=== PATIENT | male | born 1955 | race Hispanic/Latino ===

== ENCOUNTER → 2021-03-15 | Outpatient (CLI) | payer OTHER ==
[~2021-03-15] MED LIST: ALBUMIN (HUMAN) 25% 200 ML IV SCH
[2021-03-15 11:02] LABS: EOSINOPHILS % (AUTO) 3.9 % (0.0-8.0); HEMATOCRIT 38.7 % (42-54); MEAN CORPUSCULAR HEMOGLOBIN 33.8 pg (27.0-33.0); MEAN CORPUSCULAR HGB CONC 33.6 g/dL (32.0-36.0); MEAN CORPUSCULAR VOLUME 100.5 fL (79-99); MONOCYTES % (AUTO) 15.7 % (3.0-13.0); NEUTROPHILS % (AUTO) 59.2 % (40.0-77.0); PLATELET COUNT (AUTO) 90 K/uL (130-400); RED BLOOD CELL COUNT(AUTO) 3.85 MIL/uL (4.50-6.20); RED CELL DISTRIBUTION WIDTH 15.8 % (11.0-15.5); WHITE BLOOD COUNT (AUTO) 5.1 K/uL (4.8-10.8)
[2021-03-15 11:09] LABS: INR 1.54 (0.85-1.15); PROTHROMBIN TIME 16.1 SEC (9.6-11.6)
[2021-03-15 11:10] LABS: ALBUMIN 2.3 g/dL (3.5-5.0); BILIRUBIN,TOTAL 3.4 mg/dL (0.2-1.0); CREATININE 0.8 mg/dL (0.5-1.5); POTASSIUM 4.7 mmol/L (3.5-5.1); TOTAL PROTEIN, SERUM 7.6 g/dL (6.0-8.3)
[2021-03-15 13:42] LABS: APPEARANCE BODY FLUID CLEAR (CLEAR); COLOR,BODY FLUID YELLOW (LT YELLOW); SPECIMENTYPE,BODY FLUID ASCITES; TOTAL VOLUME,BODY FLUID 5700 mL
[2021-03-15 13:43] LABS: ALBUMIN,BODY FLUID < 0.6 g/dL; BODY FLUID RBC 240 /cu. mm.; BODY FLUID WBC 300 /cu. mm.
[2021-03-15 13:58] LABS: BF LYMPHOCYTE 50 %; BF MESOTHELIAL 45 %
== END | disposition home or self-care (01) ==
LOC: RAH 10:00
PROVIDERS: ATTEND Internal Medicine Gastroenterology
DX: R18.8 Other ascites (principal); K74.60 Unspecified cirrhosis of liver; D69.8 Other specified hemorrhagic conditions; Z98.890 Other specified postprocedural states; Z79.899 Other long term (current) drug therapy
CPT/HCPCS: 36415; 49083; 80053; 82042; 84157; 85025; 85610; 87071; 87205; 89051; C1729; P9046

== ENCOUNTER 2022-03-15 05:50 | Inpatient (IN) | payer OTHER ==
[~2022-03-15] VITALS: Ht 177.8 cm; Wt 90.6 kg
[2022-03-15] VITALS (65 sets, daily range): BP systolic 89–137; BP diastolic 47–87
[2022-03-15 06:30] LABS: BASOPHILS % (AUTO) 0.4 % (0.0-5.0); EOSINOPHILS % (AUTO) 0.8 % (0.0-8.0); HEMATOCRIT 25.2 % (42-54); MEAN CORPUSCULAR HEMOGLOBIN 33.7 pg (27.0-33.0); MEAN CORPUSCULAR HGB CONC 34.9 g/dL (32.0-36.0); MEAN CORPUSCULAR VOLUME 96.6 fL (79-99); MONOCYTES % (AUTO) 15.6 % (3.0-13.0); NEUTROPHILS % (AUTO) 70.9 % (40.0-77.0); PLATELET COUNT (AUTO) 81 K/uL (130-400); RED BLOOD CELL COUNT(AUTO) 2.61 MIL/uL (4.50-6.20); RED CELL DISTRIBUTION WIDTH 15.6 % (11.0-15.5); WHITE BLOOD COUNT (AUTO) 12.4 K/uL (4.8-10.8)
[2022-03-15] MEDS ORDERED: PANTOPRAZOLE 40 MG/VIAL IVP ONE (06:30)
[2022-03-15] MEDS ORDERED: ONDANSETRON 4MG INJ IVP ONE (06:30)
[2022-03-15] MEDS ORDERED: CEFTRIAXONE 1G VIAL 1 GM in 0.9%NACL 50ML 50 ML IV ONE (06:30)
[2022-03-15] MEDS ORDERED: LACTATED RINGERS 1000ML 1,000 ML IV ONE (06:30)
[2022-03-15] MEDS ORDERED: OCTREOTIDE ACETATE 100 MCG/ML AMP IVP ONE (06:30)
[2022-03-15] MEDS ORDERED: OCTREOTIDE ACETATE 1,000 MCG in DEXTROSE 5%-WATER 195 ML IV SCH (06:30)
[2022-03-15 06:49] LABS: ALBUMIN 1.4 g/dL (3.5-5.0); CREATININE 0.8 mg/dL (0.5-1.5)
[2022-03-15] MEDS: CEFTRIAXONE 1G VIAL IVP SCH (06:49)
[2022-03-15 06:50] LABS: INR 2.3 (0.85-1.15); PROTHROMBIN TIME 23.9 SEC (9.6-11.6)
[2022-03-15 06:51] LABS: PARTIAL THROMBOPLASTIN TIME 46.2 SEC (26.3-35.5)
[2022-03-15] MEDS ORDERED: OCTREOTIDE ACETATE 200 MCG/ML 5 ML VIAL ONE (06:52)
[2022-03-15 06:55] LABS: TOTAL PROTEIN, SERUM 5.7 g/dL (6.0-8.3)
[2022-03-15] MEDS ORDERED: PHYTONADIONE 10 MG/1 ML AMP SQ SCH (07:00)
[2022-03-15] MEDS ORDERED: OCTREOTIDE 1,250 MCG /NS 250ML (DRIP) IV SCH ×2 (07:30)
[2022-03-15] MEDS ORDERED: OCTREOTIDE ACETATE 1,250 MCG in 0.9% NACL 250ML 250 ML IV SCH ×2 (07:30→08:00)
[2022-03-15 07:49] LABS: POTASSIUM 6.4 mmol/L (3.5-5.1)
[2022-03-15] MEDS ORDERED: NA ZIRCON CYCLOSIL(LOKELMA 10GM) PO ONE (07:52)
[2022-03-15] MEDS ORDERED: SODIUM ZIRCONIUM CYCLOSILICATE 5 GM POWD.PACK PO STA (07:59)
[2022-03-15] MEDS ORDERED: NOREPINEPHRIN 4MG/NS 250ML 250 ML IV SCH (08:00)
[2022-03-15] MEDS: 0.9%NACL 1000ML 1,000 ML IV SCH ×2 (08:18→18:00)
[2022-03-15 08:40] LABS: HEMATOCRIT 22.3 % (42-54)
[2022-03-15] MEDS: PANTOPRAZOLE 40MG INJ 80 MG in 0.9%NACL 100ML 100 ML IVP SCH ×2 (08:59→18:13)
[2022-03-15] MEDS ORDERED: ONDANSETRON 4MG INJ IVP PRN (09:00)
[2022-03-15] MEDS ORDERED: CHLORDIAZEPOXIDE HCL 25 MG CAP PO PRN (09:00)
[2022-03-15] MEDS ORDERED: GLUCAGON 1MG KIT 1 MG ML IM PRN (09:00)
[2022-03-15] MEDS ORDERED: CALCIUM GLUC 1GM/10ML VIAL IVPB SCH (09:00)
[2022-03-15] MEDS ORDERED: SODIUM BICARB 8.4% 50ML SYRINGE IVP SCH (09:00)
[2022-03-15] MEDS ORDERED: ACETAMINOPHEN 325 MG TAB PO PRN (09:00)
[2022-03-15] MEDS ORDERED: DEXTROSE 50%-WATER 50 ML DISP.SYRIN IV PRN (09:00)
[2022-03-15] MEDS ORDERED: ACETAMINOPHEN 650 MG SUPPOSITORY RC PRN (09:00)
[2022-03-15] MEDS ORDERED: INSULIN HUMULIN R 100 UNIT/ML 3ML IV ONE (09:00)
[2022-03-15] MEDS ORDERED: LORAZEPAM 2 MG/ML 1 ML VIAL IM PRN (09:00)
[2022-03-15] MEDS ORDERED: KAYEXALATE 15GM/60ML RC ONE (09:00)
[2022-03-15] MEDS ORDERED: 0.9%NACL 50ML IV SCH (09:00)
[2022-03-15] MEDS ORDERED: DEXTROSE 50%-WATER 50 ML DISP.SYRIN IV ONE (09:00)
[2022-03-15] MEDS ORDERED: SODIUM BICARB 50MEQ 50ML VIAL 50 ML ONE (09:20)
[2022-03-15] MEDS ORDERED: CALCIUM GLUC 1GM/10ML VIAL ONE ×3 (09:25→22:45)
[2022-03-15] MEDS: METOCLOPRAMIDE 10 MG/2 ML VIAL IVP SCH ×3 (09:38→20:49)
[2022-03-15] MEDS: CALCIUM GLUC 1GM 1 GM in 0.9%NACL 100ML 100 ML IV SCH ×3 (09:39→23:58)
[2022-03-15] MEDS: LACTULOSE 20 GM/30 ML UDCUP PO SCH ×2 (09:53→15:14)
[2022-03-15] MEDS ORDERED: FURO40TA5 PO (10:11)
[2022-03-15] MEDS ORDERED: SPIR100T5 PO (10:11)
[2022-03-15] MEDS ORDERED: VITA-382 PO (10:11)
[2022-03-15] MEDS ORDERED: ROCURONIUM BROMIDE 10MG/1ML 5ML VL IV ONE (10:50)
[2022-03-15 11:55] LABS: CREATININE 0.9 mg/dL (0.5-1.5)
[2022-03-15 12:21] LABS: POTASSIUM 7.1 mmol/L (3.5-5.1)
[2022-03-15] MEDS ORDERED: COMPOUND IV REFRIGERATED 1 EACH IVSOLN MISC PRN (13:30)
[2022-03-15] MEDS ORDERED: FUROSEMIDE 40MG VIAL IV SCH (13:30)
[2022-03-15] MEDS ORDERED: PROPOFOL 10 MG/ML 20ML VIAL IV SCH (15:46)
[2022-03-15] MEDS ORDERED: ETOMIDATE 20MG VIAL IVP SCH (15:46)
[2022-03-15] MEDS ORDERED: PROPOFOL 1000 MG/100 ML 100 ML IV ONE (15:55)
[2022-03-15] MEDS ORDERED: FENTANYL CITRATE PF 0.05 MG/ML 2,500 MCG in 0.9% NACL 250ML 200 ML IV PRN (16:30)
[2022-03-15] MEDS ORDERED: PHARMACY COMMUNICATION MISC SCH ×2 (16:30→17:30)
[2022-03-15] MEDS ORDERED: NOREPINEPHRIN 4MG/NS 250ML 250 ML IV PRN (16:30)
[2022-03-15] MEDS ORDERED: MIDAZOLAM 100MG-0.9% NS 100ML 50 ML IV PRN (16:30)
[2022-03-15] MEDS ORDERED: MIDAZOLAM 100MG-0.9% NS 100ML 100 ML IV ONE (16:32)
[2022-03-15 16:49] LABS: ABG BASE EXCESS 0.8 mmol/L (-2.0-3.0); ABG HCO3 24.1 mmol/L (21.0-28.0); ABG OXYGEN SATURATION 97.7 % (95.0-99.0); ABG PCO2 33 mmHg (35-48)
[2022-03-15] MEDS ORDERED: LACTULOSE 20 GM/30 ML UDCUP PR PRN (17:20)
[2022-03-15] MEDS ORDERED: FENTANYL 2500MCG+NS 250ML 250 ML IV SCH (17:30)
[2022-03-15 19:53] LABS: HEMATOCRIT 18.4 % (42-54)
[2022-03-15 20:00] LABS: CARBON DIOXIDE 18 mmol/L (21-32); CHLORIDE 111 mmol/L (101-111); CREATININE 0.5 mg/dL (0.5-1.5); GLOMERULAR FILTR. RATE CALC 177 mL/min (>60); GLUCOSE,RANDOM 77 mg/dL (70-105); POTASSIUM 3.6 mmol/L (3.5-5.1); SODIUM SERUM 133 mmol/L (136-145); UREA NITROGEN, BLOOD 16 mg/dL (7-18)
[2022-03-15] MEDS ORDERED: FENTANYL 75 MCG/HR PATCH TD ONE (20:41)
[2022-03-15] MEDS: CEFTRIAXONE 2GM VIAL IVP SCH (20:44)
[2022-03-15] MEDS: MIDODRINE HCL 5 MG TABLET PO SCH (20:45)
[2022-03-16] VITALS (70 sets, daily range): BP systolic 86–136; BP diastolic 37–76
[2022-03-16] MEDS: METOCLOPRAMIDE 10 MG/2 ML VIAL IVP SCH (03:20)
[2022-03-16] MEDS: 0.9%NACL 1000ML 1,000 ML IV SCH ×3 (03:23→23:32)
[2022-03-16] MEDS: PANTOPRAZOLE 40MG INJ 80 MG in 0.9%NACL 100ML 100 ML IVP SCH ×3 (03:25→23:26)
[2022-03-16 04:01] LABS: BASOPHILS % (AUTO) 0.3 % (0.0-5.0); EOSINOPHILS % (AUTO) 1.4 % (0.0-8.0); HEMATOCRIT 28.5 % (42-54); LYMPHOCYTES % (AUTO) 14.1 % (21.0-51.0); MEAN CORPUSCULAR HEMOGLOBIN 31.7 pg (27.0-33.0); MEAN CORPUSCULAR HGB CONC 35.4 g/dL (32.0-36.0); MEAN CORPUSCULAR VOLUME 89.3 fL (79-99); MONOCYTES % (AUTO) 12.3 % (3.0-13.0); NEUTROPHILS % (AUTO) 70.9 % (40.0-77.0); PLATELET COUNT (AUTO) 47 K/uL (130-400); RED BLOOD CELL COUNT(AUTO) 3.19 MIL/uL (4.50-6.20); RED CELL DISTRIBUTION WIDTH 16.3 % (11.0-15.5); WHITE BLOOD COUNT (AUTO) 10.2 K/uL (4.8-10.8)
[2022-03-16 04:13] LABS: INR 1.97 (0.85-1.15); PROTHROMBIN TIME 20.7 SEC (9.6-11.6)
[2022-03-16 04:27] LABS: ALBUMIN 1.7 g/dL (3.5-5.0); CREATININE 0.8 mg/dL (0.5-1.5); MAGNESIUM 1.6 mg/dL (1.80-2.40); PHOSPHORUS 2.8 mg/dL (2.5-4.9); POTASSIUM 4.9 mmol/L (3.5-5.1); TOTAL PROTEIN, SERUM 5.7 g/dL (6.0-8.3)
[2022-03-16] MEDS ORDERED: CALCIUM GLUC 1GM/10ML VIAL ONE (04:40)
[2022-03-16] MEDS: CALCIUM GLUC 1GM 1 GM in 0.9%NACL 100ML 100 ML IV SCH (04:42)
[2022-03-16] MEDS ORDERED: LACTULOSE 20 GM/30 ML UDCUP PR SCH (05:40)
[2022-03-16] MEDS: CEFTRIAXONE 1G VIAL IVP SCH (06:30)
[2022-03-16] MEDS: LACTULOSE 20 GM/30 ML UDCUP PR SCH ×2 (08:31→19:48)
[2022-03-16] MEDS ORDERED: MAGNESIUM 2GM PREMIX 50ML 50 ML IV ONE (08:38)
[2022-03-16] MEDS: MIDODRINE HCL 5 MG TABLET PO SCH ×3 (08:43→19:47)
[2022-03-16] MEDS: PHYTONADIONE 10 MG in 0.9%NACL 50ML 50 ML IVPB SCH (08:43)
[2022-03-16] MEDS: MAGNESIUM 2GM PREMIX 50ML 50 ML IV PRN (08:58)
[2022-03-16] MEDS ORDERED: NOREPINEPHRINE 8MG/NS 250ML PREMIX IV SCH (09:00)
[2022-03-16 12:54] LABS: HEMATOCRIT 28.8 % (42-54)
[2022-03-16 13:04] LABS: INR 2.1 (0.85-1.15); PROTHROMBIN TIME 21.9 SEC (9.6-11.6)
[2022-03-16 13:05] LABS: PARTIAL THROMBOPLASTIN TIME 45.1 SEC (26.3-35.5)
[2022-03-16 20:48] LABS: INR 2.04 (0.85-1.15); PROTHROMBIN TIME 21.4 SEC (9.6-11.6)
[2022-03-16 20:50] LABS: PARTIAL THROMBOPLASTIN TIME 44.4 SEC (26.3-35.5)
[2022-03-16 20:56] LABS: HEMATOCRIT 29.4 % (42-54)
[2022-03-16] MEDS: CEFTRIAXONE 2GM VIAL IVP SCH (21:11)
[2022-03-17] VITALS (37 sets, daily range): BP systolic 98–127; BP diastolic 51–71
[2022-03-17 04:28] LABS: BASOPHILS % (AUTO) 0.4 % (0.0-5.0); HEMATOCRIT 28.6 % (42-54); LYMPHOCYTES % (AUTO) 6.5 % (21.0-51.0); MEAN CORPUSCULAR HEMOGLOBIN 31.7 pg (27.0-33.0); MEAN CORPUSCULAR VOLUME 90.8 fL (79-99); MONOCYTES % (AUTO) 10.4 % (3.0-13.0); NEUTROPHILS % (AUTO) 78.2 % (40.0-77.0); NUCLEATED RED BLOOD CELLS 0.3 % (0.0-0.19); PLATELET COUNT (AUTO) 45 K/uL (130-400); RED BLOOD CELL COUNT(AUTO) 3.15 MIL/uL (4.50-6.20); RED CELL DISTRIBUTION WIDTH 18.5 % (11.0-15.5); WHITE BLOOD COUNT (AUTO) 13.5 K/uL (4.8-10.8)
[2022-03-17 04:35] LABS: INR 1.99 (0.85-1.15); PROTHROMBIN TIME 20.9 SEC (9.6-11.6)
[2022-03-17 04:38] LABS: ALBUMIN 1.6 g/dL (3.5-5.0); CREATININE 0.8 mg/dL (0.5-1.5); MAGNESIUM 1.7 mg/dL (1.80-2.40); POTASSIUM 4.6 mmol/L (3.5-5.1); TOTAL PROTEIN, SERUM 5.5 g/dL (6.0-8.3)
[2022-03-17 05:53] LABS: PLATELET MORPHOLOGY COMMENT DECREASED
[2022-03-17] MEDS ORDERED: PHARMACY COMMUNICATION MISC SCH (08:00)
[2022-03-17] MEDS: MAGNESIUM 2GM PREMIX 50ML 50 ML IV PRN (08:16)
[2022-03-17] MEDS: PHYTONADIONE 10 MG in 0.9%NACL 50ML 50 ML IVPB SCH (08:16)
[2022-03-17] MEDS: MIDODRINE HCL 5 MG TABLET PO SCH ×3 (09:00→19:47)
[2022-03-17] MEDS: 0.9%NACL 1000ML 1,000 ML IV SCH (09:26)
[2022-03-17] MEDS: PANTOPRAZOLE 40 MG/VIAL IVP SCH (09:33)
[2022-03-17] MEDS: FUROSEMIDE 20MG VIAL IV SCH ×2 (09:36→21:13)
[2022-03-17] MEDS ORDERED: WATER PO SCH ×2 (10:00)
[2022-03-17] MEDS ORDERED: UDCUP PO SCH ×2 (10:00)
[2022-03-17] MEDS ORDERED: LACTULOSE 20 GM/30 ML PO SCH ×2 (10:00)
[2022-03-17] MEDS: CEFTRIAXONE 2GM VIAL IVP SCH (21:13)
[2022-03-17] MEDS: LACTULOSE 20 GM/30 ML PR SCH ×2 (21:15)
[2022-03-17] MEDS: UDCUP PR SCH ×2 (21:15)
[2022-03-17] MEDS: WATER PR SCH ×2 (21:15)
[2022-03-18] VITALS (24 sets, daily range): BP systolic 105–147; BP diastolic 58–94
[2022-03-18 04:29] LABS: BASOPHILS % (AUTO) 0.4 % (0.0-5.0); EOSINOPHILS % (AUTO) 0.6 % (0.0-8.0); HEMATOCRIT 28.3 % (42-54); LYMPHOCYTES % (AUTO) 6.6 % (21.0-51.0); MEAN CORPUSCULAR HEMOGLOBIN 31.8 pg (27.0-33.0); MEAN CORPUSCULAR HGB CONC 34.6 g/dL (32.0-36.0); MEAN CORPUSCULAR VOLUME 91.9 fL (79-99); MONOCYTES % (AUTO) 12.9 % (3.0-13.0); NUCLEATED RED BLOOD CELLS 0.2 % (0.0-0.19); PLATELET COUNT (AUTO) 44 K/uL (130-400); RED BLOOD CELL COUNT(AUTO) 3.08 MIL/uL (4.50-6.20); RED CELL DISTRIBUTION WIDTH 18.8 % (11.0-15.5); WHITE BLOOD COUNT (AUTO) 11.3 K/uL (4.8-10.8)
[2022-03-18 04:49] LABS: INR 1.93 (0.85-1.15); PROTHROMBIN TIME 20.3 SEC (9.6-11.6)
[2022-03-18 04:50] LABS: ALBUMIN 1.6 g/dL (3.5-5.0); CREATININE 0.8 mg/dL (0.5-1.5); MAGNESIUM 2.2 mg/dL (1.80-2.40); PARTIAL THROMBOPLASTIN TIME 46.1 SEC (26.3-35.5); POTASSIUM 4.2 mmol/L (3.5-5.1); TOTAL PROTEIN, SERUM 5.7 g/dL (6.0-8.3)
[2022-03-18] MEDS: MIDODRINE HCL 5 MG TABLET PO SCH ×3 (07:36→21:00)
[2022-03-18] MEDS: PANTOPRAZOLE 40 MG/VIAL IVP SCH (08:05)
[2022-03-18] MEDS: FUROSEMIDE 20MG VIAL IV SCH ×3 (08:05→20:02)
[2022-03-18] MEDS: WATER PR SCH ×4 (08:07→20:05)
[2022-03-18] MEDS: LACTULOSE 20 GM/30 ML PR SCH ×4 (08:07→20:05)
[2022-03-18] MEDS: UDCUP PR SCH ×4 (08:07→20:05)
[2022-03-18] MEDS: 0.9%NACL 1000ML 1,000 ML IV SCH (08:08)
[2022-03-18] MEDS: PHYTONADIONE 10 MG in 0.9%NACL 50ML 50 ML IVPB SCH (09:48)
[2022-03-18] MEDS: CEFTRIAXONE 2GM VIAL IVP SCH (20:02)
[2022-03-19] VITALS (24 sets, daily range): BP systolic 102–144; BP diastolic 49–77
[2022-03-19 04:30] LABS: HEMATOCRIT 28.4 % (42-54); MEAN CORPUSCULAR HEMOGLOBIN 31.8 pg (27.0-33.0); MEAN CORPUSCULAR HGB CONC 33.5 g/dL (32.0-36.0); RED BLOOD CELL COUNT(AUTO) 2.99 MIL/uL (4.50-6.20); RED CELL DISTRIBUTION WIDTH 18.7 % (11.0-15.5); WHITE BLOOD COUNT (AUTO) 11.7 K/uL (4.8-10.8)
[2022-03-19 04:37] LABS: ALBUMIN 1.6 g/dL (3.5-5.0); CREATININE 0.8 mg/dL (0.5-1.5); POTASSIUM 3.8 mmol/L (3.5-5.1); TOTAL PROTEIN, SERUM 5.5 g/dL (6.0-8.3)
[2022-03-19] MEDS: FUROSEMIDE 20MG VIAL IV SCH ×3 (06:12→21:05)
[2022-03-19] MEDS: 0.9%NACL 1000ML 1,000 ML IV SCH (06:13)
[2022-03-19] MEDS: POTASSIUM CHLORIDE 20MEQ/100ML 100 ML IV PRN (06:13)
[2022-03-19] MEDS: MIDODRINE HCL 5 MG TABLET PO SCH ×3 (07:39→21:00)
[2022-03-19] MEDS: PANTOPRAZOLE 40 MG/VIAL IVP SCH (08:37)
[2022-03-19] MEDS: WATER PR SCH ×4 (08:38→20:04)
[2022-03-19] MEDS: UDCUP PR SCH ×4 (08:38→20:04)
[2022-03-19] MEDS: LACTULOSE 20 GM/30 ML PR SCH ×4 (08:38→20:04)
[2022-03-19 08:48] LABS: ABG BASE EXCESS 2.1 mmol/L (-2.0-3.0); ABG PCO2 38 mmHg (35-48)
[2022-03-19 09:08] LABS: ABG BASE EXCESS 1.4 mmol/L (-2.0-3.0); ABG HCO3 24.3 mmol/L (21.0-28.0); ABG OXYGEN SATURATION 97.3 % (95.0-99.0); ABG PCO2 33 mmHg (35-48)
[2022-03-19] MEDS: CEFTRIAXONE 2GM VIAL IVP SCH (20:04)
[2022-03-19 23:25] LABS: AMPHET/METH SCREEN,URINE NEGATIVE (NEGATIVE); APPEARANCE,URINE CLEAR (CLEAR); BARBITURATE SCREEN, URINE NEGATIVE (NEGATIVE); BENZODIAZEPINES SCREEN,URINE POSITIVE (NEGATIVE); BILIRUBIN,URINE 0.5 mg/dL (NEGATIVE); CANNABINOID SCREEN,URINE NEGATIVE (NEGATIVE); COCAINE SCREEN,URINE NEGATIVE (NEGATIVE); COLOR,URINE YELLOW (YELLOW); GLUCOSE, URINE (UA) NEGATIVE (NEGATIVE); KETONES,URINE 5 mg/dL (NEGATIVE); LEUKOCYTE ESTERASE ,URINE 25 Leu/uL (NEGATIVE); MUCUS,URINE RARE LPF (None Seen); NITRATE,URINE NEGATIVE (NEGATIVE); OCCULT BLOOD,URINE MODERATE (NEGATIVE); OPIATE SCREEN,URINE NEGATIVE (NEGATIVE); PHENCYCLIDINE SCREEN,URINE NEGATIVE (NEGATIVE); PROTEIN,URINE 10 mg/dL (NEGATIVE); RBC,URINE 26-50 /HPF (0-1); SQUAMOUS EPITHELIAL CELL,UR RARE /HPF (0-2); UROBILINOGEN,URINE 0.2 mg/dL (0.2-1.0)
[2022-03-20] VITALS (22 sets, daily range): BP systolic 94–125; BP diastolic 45–73
[2022-03-20] MEDS: 0.9%NACL 1000ML 1,000 ML IV SCH (01:43)
[2022-03-20 04:19] LABS: HEMATOCRIT 28.2 % (42-54); MEAN CORPUSCULAR HEMOGLOBIN 32.2 pg (27.0-33.0); MEAN CORPUSCULAR VOLUME 94.6 fL (79-99); RED BLOOD CELL COUNT(AUTO) 2.98 MIL/uL (4.50-6.20); RED CELL DISTRIBUTION WIDTH 18.9 % (11.0-15.5)
[2022-03-20 04:29] LABS: CREATININE 0.7 mg/dL (0.5-1.5); MAGNESIUM 2.1 mg/dL (1.80-2.40); PHOSPHORUS 2.5 mg/dL (2.5-4.9); POTASSIUM 3.7 mmol/L (3.5-5.1)
[2022-03-20 04:43] LABS: ABG BASE EXCESS 2.4 mmol/L (-2.0-3.0); ABG HCO3 26.4 mmol/L (21.0-28.0); ABG OXYGEN SATURATION 95.5 % (95.0-99.0); ABG PCO2 39 mmHg (35-48)
[2022-03-20] MEDS: POTASSIUM CHLORIDE 20MEQ/100ML 100 ML IV PRN (05:09)
[2022-03-20] MEDS: FUROSEMIDE 20MG VIAL IV SCH ×3 (05:09→21:10)
[2022-03-20] MEDS: MIDODRINE HCL 5 MG TABLET PO SCH (08:26)
[2022-03-20] MEDS ORDERED: LACTULOSE 20 GM/30 ML UDCUP PO PRN (08:30)
[2022-03-20] MEDS: LACTULOSE 20 GM/30 ML UDCUP PO SCH ×2 (09:25→20:02)
[2022-03-20] MEDS: PANTOPRAZOLE 40 MG/VIAL IVP SCH (09:25)
[2022-03-20] MEDS: CEFTRIAXONE 2GM VIAL IVP SCH (20:01)
[2022-03-21] VITALS (15 sets, daily range): BP systolic 96–122; BP diastolic 45–67
[2022-03-21 04:10] LABS: HEMATOCRIT 28.9 % (42-54); MEAN CORPUSCULAR HEMOGLOBIN 31.9 pg (27.0-33.0); MEAN CORPUSCULAR HGB CONC 33.9 g/dL (32.0-36.0); MEAN CORPUSCULAR VOLUME 94.1 fL (79-99); RED BLOOD CELL COUNT(AUTO) 3.07 MIL/uL (4.50-6.20); WHITE BLOOD COUNT (AUTO) 7.1 K/uL (4.8-10.8)
[2022-03-21 04:19] LABS: CREATININE 0.7 mg/dL (0.5-1.5); MAGNESIUM 1.8 mg/dL (1.80-2.40); PHOSPHORUS 2.1 mg/dL (2.5-4.9); POTASSIUM 3.5 mmol/L (3.5-5.1)
[2022-03-21] MEDS: FUROSEMIDE 20MG VIAL IV SCH ×3 (05:05→21:16)
[2022-03-21] MEDS: MAGNESIUM 2GM PREMIX 50ML 50 ML IV PRN (05:06)
[2022-03-21] MEDS: POTASSIUM CHLORIDE 20MEQ/100ML 100 ML IV PRN (05:06)
[2022-03-21 07:27] LABS: ABG BASE EXCESS 4.6 mmol/L (-2.0-3.0); ABG HCO3 28.2 mmol/L (21.0-28.0); ABG PCO2 39 mmHg (35-48)
[2022-03-21] MEDS: MIDODRINE HCL 5 MG TABLET PO SCH ×3 (08:39→21:15)
[2022-03-21] MEDS: LACTULOSE 20 GM/30 ML UDCUP PO SCH ×2 (08:39→21:15)
[2022-03-21] MEDS: PANTOPRAZOLE 40 MG/VIAL IVP SCH (08:39)
[2022-03-21] MEDS: MEROPENEM 1 GM VIAL IVP SCH (21:15)
[2022-03-21] MEDS: CEFTRIAXONE 2GM VIAL IVP SCH (21:15)
[2022-03-21] MEDS ORDERED: SODIUM CHLORIDE 3% FOR INHALATION 4 ML/AMP VIAL.NEB IH ONE (23:51)
[2022-03-22 00:15] VITALS: BP 115/62
[2022-03-22 03:12] VITALS: BP 122/59
[2022-03-22 04:10] LABS: BASOPHILS % (AUTO) 0.6 % (0.0-5.0); EOSINOPHILS % (AUTO) 3.7 % (0.0-8.0); HEMATOCRIT 29.2 % (42-54); LYMPHOCYTES % (AUTO) 12.4 % (21.0-51.0); MEAN CORPUSCULAR HEMOGLOBIN 32.1 pg (27.0-33.0); MEAN CORPUSCULAR HGB CONC 34.2 g/dL (32.0-36.0); MEAN CORPUSCULAR VOLUME 93.6 fL (79-99); MONOCYTES % (AUTO) 14.5 % (3.0-13.0); NEUTROPHILS % (AUTO) 67.4 % (40.0-77.0); PLATELET COUNT (AUTO) 44 K/uL (130-400); RED BLOOD CELL COUNT(AUTO) 3.12 MIL/uL (4.50-6.20); RED CELL DISTRIBUTION WIDTH 18.3 % (11.0-15.5); WHITE BLOOD COUNT (AUTO) 7.1 K/uL (4.8-10.8)
[2022-03-22 04:23] LABS: CREATININE 0.7 mg/dL (0.5-1.5); MAGNESIUM 1.9 mg/dL (1.80-2.40); PHOSPHORUS 2.6 mg/dL (2.5-4.9); POTASSIUM 3.8 mmol/L (3.5-5.1)
[2022-03-22] MEDS: MEROPENEM 1 GM VIAL IVP SCH ×3 (05:04→20:13)
[2022-03-22] MEDS: FUROSEMIDE 20MG VIAL IV SCH ×3 (05:06→20:13)
[2022-03-22] MEDS ORDERED: SODIUM CHLORIDE 3% FOR INHALATION 4 ML/AMP VIAL.NEB IH ONE ×2 (06:47→12:41)
[2022-03-22 07:00] VITALS: BP 114/72
[2022-03-22] MEDS: PANTOPRAZOLE 40 MG/VIAL IVP SCH (08:14)
[2022-03-22] MEDS: MIDODRINE HCL 5 MG TABLET PO SCH ×3 (08:15→20:13)
[2022-03-22] MEDS: LACTULOSE 20 GM/30 ML UDCUP PO SCH ×2 (08:15→20:14)
[2022-03-22 11:00] VITALS: BP 114/54
[2022-03-22 16:00] VITALS: BP 107/58
[2022-03-22 19:15] VITALS: BP 106/59
[2022-03-22] MEDS: RIFAXIMIN 550 MG TABLET PO SCH (20:13)
[2022-03-22] MEDS: CEFTRIAXONE 2GM VIAL IVP SCH (20:13)
[2022-03-23 00:15] VITALS: BP 102/54
[2022-03-23 03:15] VITALS: BP 97/54
[2022-03-23 04:52] LABS: BASOPHILS % (AUTO) 0.3 % (0.0-5.0); EOSINOPHILS % (AUTO) 6.2 % (0.0-8.0); HEMATOCRIT 29.5 % (42-54); LYMPHOCYTES % (AUTO) 10.5 % (21.0-51.0); MEAN CORPUSCULAR HEMOGLOBIN 32.2 pg (27.0-33.0); MEAN CORPUSCULAR HGB CONC 34.6 g/dL (32.0-36.0); MEAN CORPUSCULAR VOLUME 93.1 fL (79-99); MONOCYTES % (AUTO) 15.4 % (3.0-13.0); NEUTROPHILS % (AUTO) 66.5 % (40.0-77.0); PLATELET COUNT (AUTO) 55 K/uL (130-400); RED BLOOD CELL COUNT(AUTO) 3.17 MIL/uL (4.50-6.20); WHITE BLOOD COUNT (AUTO) 7.3 K/uL (4.8-10.8)
[2022-03-23 05:04] LABS: ALBUMIN 1.5 g/dL (3.5-5.0); CREATININE 0.5 mg/dL (0.5-1.5); POTASSIUM 4.2 mmol/L (3.5-5.1); TOTAL PROTEIN, SERUM 5.9 g/dL (6.0-8.3)
[2022-03-23] MEDS: FUROSEMIDE 20MG VIAL IV SCH ×2 (05:42→13:38)
[2022-03-23] MEDS: MEROPENEM 1 GM VIAL IVP SCH ×2 (05:42→12:20)
[2022-03-23] MEDS: LACTULOSE 20 GM/30 ML UDCUP PO SCH ×2 (07:58→14:33)
[2022-03-23 08:00] VITALS: BP 99/54
[2022-03-23] MEDS: SODIUM CHLORIDE 1,000 MG TAB PO SCH ×2 (08:04→13:36)
[2022-03-23] MEDS: RIFAXIMIN 550 MG TABLET PO SCH (08:04)
[2022-03-23] MEDS: MIDODRINE HCL 5 MG TABLET PO SCH ×2 (08:05→13:36)
[2022-03-23] MEDS: PANTOPRAZOLE 40 MG/VIAL IVP SCH (08:05)
[2022-03-23 12:10] VITALS: BP 113/62
[2022-03-23 16:00] VITALS: BP 115/69
== END 2022-03-23 18:00 | DRG 432 ==
LOC: EDH 05:50 → EDHIP 07:49 → 2BH 10:10 → 2AH 03-21 15:02 → 3AH 03-23 10:16
PROVIDERS: ADMIT Internal Medicine Critical Care Medicine; ATTEND Internal Medicine Critical Care Medicine
PROC: 06L38CZ Occlusion of Esophageal Vein with Extraluminal Device, Via Natural or Artificial Opening Endoscopic (ICD-10-PCS; principal; 2022-03-15)
PROC: 30233K1 Transfusion of Nonautologous Frozen Plasma into Peripheral Vein, Percutaneous Approach (ICD-10-PCS; 2022-03-15)
PROC: 30233N1 Transfusion of Nonautologous Red Blood Cells into Peripheral Vein, Percutaneous Approach (ICD-10-PCS; 2022-03-15)
PROC: 5A1945Z Respiratory Ventilation, 24-96 Consecutive Hours (ICD-10-PCS; 2022-03-15)
PROC: 0BH17EZ Insertion of Endotracheal Airway into Trachea, Via Natural or Artificial Opening (ICD-10-PCS; 2022-03-15)
PROC: 5A09357 Assistance with Respiratory Ventilation, Less than 24 Consecutive Hours, Continuous Positive Airway Pressure (ICD-10-PCS; 2022-03-17)
DX: K74.60 Unspecified cirrhosis of liver (principal); G93.41 Metabolic encephalopathy; I85.11 Secondary esophageal varices with bleeding; J96.01 Acute respiratory failure with hypoxia; R57.1 Hypovolemic shock; K65.2 Spontaneous bacterial peritonitis; K76.7 Hepatorenal syndrome; D62 Acute posthemorrhagic anemia; E87.20 Acidosis, unspecified; R18.8 Other ascites; D68.9 Coagulation defect, unspecified; N39.0 Urinary tract infection, site not specified; E87.1 Hypo-osmolality and hyponatremia; K76.6 Portal hypertension; Z20.822 Contact with and (suspected) exposure to COVID-19; D69.6 Thrombocytopenia, unspecified; K76.82 Hepatic encephalopathy; E87.5 Hyperkalemia
CPT/HCPCS: 31500; 36415; 36600; 43244; 70450; 71045; 74176; 76705; 80048; 80053; 80305; 81001; 82140; 82435; 82803; 82947; 82948; 83605; 83735; 84100; 84132; 84295; 85014; 85018; 85025; 85027; 85610; 85730; 86850; 86900; 86901; 86923; 86927; 87088; 87635; 87804; 92610; 93005; 94002; 94003; 94640; 97039; 99291; C1751; C1894; C9113; G0378; J0610; J0696; J1815; J1940; J2060; J2185; J2250; J2354; J2405; J2704; J2765; J3430; J3475; J3480; J3490; J7030; J7050; J7070; J7120; P9016; P9017